=== PATIENT | male | born 1940 | race Caucasian/White ===

== ENCOUNTER → 2023-11-05 10:55 | Outpatient (REF) | payer MEDICARE, BC, SELFPAY | LOC: PAVMRI 10:55 | PROVIDERS: ATTENDING PHYSICIAN Orthopaedic Surgery; FAMILY PHYSICIAN Family Medicine | DX: S32.000A Wedge compression fracture of unspecified lumbar vertebra, initial encounter for closed fracture (principal) | CPT/HCPCS: 72148 ==

== ENCOUNTER 2023-11-07 06:48 | Emergency (ER) | payer MEDICARE, BC, SELFPAY ==
[2023-11-07 06:48] VITALS: BMI 25.0
[2023-11-07 07:07] VITALS: BP 101/63
--- NOTE | 2023-11-07 07:46 | ED.GENMED ---
History of Present Illness
General
Chief Complaint: Bowel Problem
Source: patient
Exam Limitations: none
Time Seen by Provider: 11/07/23 07:34
Travel History
Have you had any contact with someone who has COVID-19?: No
Do you have any symptoms of coronavirus? Fever > 100 degrees, chills, cough, shortness of breath, sore throat, loss of taste or smell, muscle aches, or headache?: No
History of Present Illness
History of Present Illness:
83-year-old male presents with at least 5 or 6 days worth of no bowel movement. He starting at lower abdominal pain. Dates he is belching but no vomiting. He has tried Dulcolax. He tried magnesium citrate without relief. Prior to this he was
having loose stool. He also is having back pain has been taking Vicodin. The constipation started before started taking the Vicodin. No prior abdominal surgical history. He denies any urinary symptoms. No other complaints time
Past History
Past History
ED Past Medical History: CAD, Hypercholesterolemia, [place] and Other (GI bleeding)
ED Past Surgical History: Cardiac (Stents X7)
Social History
Tobacco: Non-smoker
Alcohol: Occasional
Drug: None
Personal:
Living: with family
Employment: Employed ([employer] manager)
Phy Exam
Physical Exam
Physical Exam:
General: Well-appearing male no acute respiratory distress
HEENT: Normocephalic atraumatic
Heart: Regular rate and rhythm no murmurs
Lungs: Clear no wheeze or Rales
Abdomen: Soft tender to the lower abdomen bilaterally mildly distended no guarding or rebound normal bowel sounds
Rectal exam: No hemorrhoids. No stool in the rectum.
Extremities: No cyanosis
Course
Orders/Labs/Results
Orders:
Orders
11/07/23 07:46
CT Abd/pelvis W Iv Cont Urgent
Comment:
Reason For Exam: abdominal pain, constipation
11/07/23 08:25
Complete Blood Count/With Diff Urgent
Comprehensive Metabolic Panel Urgent
Abnormal Lab Results
11/07/23
08:25
RBC 3.90 L 10^6/uL
(4.70-6.10)
Hgb 12.8 L g/dL
(13.0-18.0)
Hct 37.2 L %
(39.0-52.0)
MCV 95.4 H fL
(80.0-94.0)
MCH 32.8 H pg
(27.0-31.0)
Absolute Monos (auto) 0.7 H 10^3/uL
(0.1-0.6)
Monocytes % 11.0 H %
(1.7-9.3)
BUN 24 H mg/dl
(9-20)
Glucose 101 H mg/dl
(70-99)
AST 15 L U/L
(17-59)
11/07/23 08:25
11/07/23 08:25
Vital Signs
Initial and Last Documented VS:
Initial Vital Signs
Temp Pulse Resp BP Pulse Ox
98.2 F 71 16 101/63 98
11/07/23 07:07 11/07/23 07:07 11/07/23 07:07 11/07/23 07:07 11/07/23 07:07
Last Documented Vital Signs
Temp Pulse Resp BP Pulse Ox
98.2 F 71 16 101/63 98
11/07/23 07:07 11/07/23 07:07 11/07/23 07:07 11/07/23 07:07 11/07/23 07:07
MDM/Problems Addressed
Differential Diagnosis Includes:
Abdominal pain with constipation. Question possible obstruction versus impaction. Will check labs and CT. There is nothing to manually disimpact.
*Critical Care Note
Total Time (30-74mins, 75-104mins- exclusive of procedures): Not Applicable
Update Note
Update Note:
CT negative for acute infectious process or obstruction. There is a large amount of stool throughout the colon. Stool is too high for an enema to be effective. Recommended MiraLAX twice a day. Advise limiting or stopping the use of narcotics for
his back pain as this may be adding into his constipation problem
ED Attending Note
-
Portions of this chart may have been created with voice recognition software.� Occasional wrong word or��sound alike� substitutions may have occurred due to the inherent limitations of voice recognition software.
Discharge Plan
Departure
Patient Disposition: Home (Routine Discharge)
Date of Disposition: 11/07/23
Time of Disposition: 11:04
Patient with high blood pressure during this ER visit?: No
Discharge Problem:
Constipation
Instructions: Constipation, Adult (DC)
Prescriptions:
No Action
clonazepam 0.5 MG tablet
0.5 mg PO HS
aspirin 81 MG tablet,delayed release (DR/EC)
81 mg PO QPM
rosuvastatin 5 MG tablet
5 mg PO QPM
nitroglycerin 0.4 MG tablet, sublingual
0.4 mg sublingual [id number] PRN (Reason: chest pain) Qty: 25 3RF
metoprolol succinate [Toprol XL] 50 MG tablet extended release 24 hr
25 mg PO QPM
tamsulosin 0.4 MG capsule
0.4 mg PO QPM
lisinopril-hydrochlorothiazide 1 EACH tablet
1 tab PO DAILY
Canibus Oil
0.5 applic PO BID PRN (Reason: PAIN)
naproxen sodium [Aleve] 220 MG tablet
220 mg PO DAILY
GenTeal Mild 0.2 % Drops
1 drp OPHTHALMIC (EYE) BID PRN (Reason: DRY EYES)
lisinopril-hydrochlorothiazide 20-25 mg tablet
1 tab PO DAILY Qty: 30 0RF
Referrals:
Larry Miguel MD [Family Provider] -
Activity Restrictions/Additional Instructions:
Drink plenty water. Limit or stop the use of narcotic pain medicine. Use MiraLAX twice a day. Return if worse otherwise follow-up with family doctor.
Interventions
Interventions:
*ED COVID-19 Vaccine History Last Done: 11/07/23 07:07
Discharge Date and Time
Print Language: FAROESE
[2023-11-07 08:37] LABS: % Basophils 0.3 % (0-2); % Eosinophils 1.2 % (0-6); % Immature Granulocytes 0.5 % (0-0.5); % Lymphocytes 20.5 % (20.5-51.1); % Neutrophils 66.5 % (42.2-75.2); Absolute Eosinophils 0.1 10^3/uL (0-0.7); Absolute Lymphocytes 1.3 10^3/uL (1.2-3.4); Absolute Monocytes 0.7 10^3/uL (0.1-0.6); Absolute Neutrophils 4.3 10^3/uL (1.4-6.5); Hematocrit 37.2 % (39.0-52.0); Hemoglobin 12.8 g/dL (13.0-18.0); Mean Corp Hgb Conc. 34.4 g/dL (33.0-37.0); Mean Corpuscular Hgb 32.8 pg (27.0-31.0); Mean Corpuscular Volume 95.4 fL (80.0-94.0); Mean Platelet Volume 7.8 fL (7.4-10.4); Nucleated Red Blood Cells % 0 % (-); Platelet Count 241 10^3/uL (130-400); White Blood Cell Count 6.5 10^3/uL (4.8-10.8)
[2023-11-07 08:55] LABS: ALT (SGPT) 12 U/L (0-50); AST (SGOT) 15 U/L (17-59); Albumin 4.1 g/dl (3.5-5.0); Alkaline Phosphatase 81 U/L (38-126); Blood Urea Nitrogen 24 mg/dl (9-20); Calcium 9.4 mg/dl (8.4-10.2); Carbon Dioxide 28 mmol/L (22-30); Chloride 101 mmol/L (98-107); Glucose 101 mg/dl (70-99); Potassium 4.9 mmol/L (3.5-5.1); Sodium 136 mmol/L (135-145); Total Bilirubin 0.8 mg/dl (0.2-1.3); Total Protein 6.6 g/dl (6.3-8.2); eGFR > 60.00
[2023-11-07 11:00] VITALS: BP 150/84
== END 2023-11-07 11:28 | disposition home or self-care (01) ==
LOC: EMR 06:48
PROVIDERS: Physician Assistant; EMERGENCY PHYSICIAN Emergency Medicine; FAMILY PHYSICIAN Family Medicine
DX: K59.00 Constipation, unspecified (principal); M54.9 Dorsalgia, unspecified; I25.10 Atherosclerotic heart disease of native coronary artery without angina pectoris; E78.00 Pure hypercholesterolemia, unspecified; I25.2 Old myocardial infarction; Z95.5 Presence of coronary angioplasty implant and graft
CPT/HCPCS: 99285; 74177; 80053; 85025; Q9967

== ENCOUNTER → 2024-01-13 10:41 | Outpatient (REF) | payer MEDICARE, BC, SELFPAY ==
[2024-01-13 13:17] LABS: PSA, Total - Diagnostic 0.07 ng/ml (0.0-4.0)
== END ==
LOC: REG 10:41
PROVIDERS: ATTENDING PHYSICIAN Family Medicine
DX: C61 Malignant neoplasm of prostate (principal)
CPT/HCPCS: 36415; 84153

== ENCOUNTER → 2024-03-28 11:40 | Outpatient (REF) | payer MEDICARE, BC, SELFPAY | LOC: RAD 11:40 | PROVIDERS: ATTENDING PHYSICIAN Nurse Practitioner Adult Health; FAMILY PHYSICIAN Family Medicine | DX: R91.8 Other nonspecific abnormal finding of lung field (principal) | CPT/HCPCS: 71250 ==

== ENCOUNTER → 2024-04-06 11:08 | Outpatient (REF) | payer MEDICARE, BC, SELFPAY ==
[2024-04-06 12:19] LABS: % Basophils 0.5 % (0-2); % Eosinophils 1.6 % (0-6); % Immature Granulocytes 0.3 % (0-0.5); % Lymphocytes 21.3 % (20.5-51.1); % Monocytes 8.6 % (1.7-9.3); % Neutrophils 67.7 % (42.2-75.2); Absolute Eosinophils 0.1 10^3/uL (0-0.7); Absolute Lymphocytes 1.3 10^3/uL (1.2-3.4); Absolute Monocytes 0.5 10^3/uL (0.1-0.6); Absolute Neutrophils 4.2 10^3/uL (1.4-6.5); Hematocrit 39.1 % (39.0-52.0); Hemoglobin 13.7 g/dL (13.0-18.0); Mean Corpuscular Hgb 34.1 pg (27.0-31.0); Mean Corpuscular Volume 97.3 fL (80.0-94.0); Mean Platelet Volume 8.9 fL (7.4-10.4); Nucleated Red Blood Cells % 0 % (-); Platelet Count 179 10^3/uL (130-400); Red Blood Cell Count 4.02 10^6/uL (4.70-6.10); Red Cell Dist. Width 12.4 % (11.5-14.5); White Blood Cell Count 6.2 10^3/uL (4.8-10.8)
[2024-04-06 12:58] LABS: ALT (SGPT) 11 U/L (0-50); AST (SGOT) 17 U/L (17-59); Alkaline Phosphatase 64 U/L (38-126); Blood Urea Nitrogen 17 mg/dl (9-20); Calcium 9.3 mg/dl (8.4-10.2); Carbon Dioxide 22 mmol/L (22-30); Chloride 104 mmol/L (98-107); Glucose 91 mg/dl (70-99); HDL Cholesterol 55 mg/dl; LDL Cholesterol, Calculated 51 mg/dl; Potassium 4.4 mmol/L (3.5-5.1); Sodium 140 mmol/L (135-145); Total Bilirubin 0.9 mg/dl (0.2-1.3); Total Cholesterol 115 mg/dl (50-199); Total Protein 6.3 g/dl (6.3-8.2); Triglyceride 48 mg/dl (10-149); Urine Albumin Negative (Neg - Trace); Urine Bilirubin Negative (Negative); Urine Character Clear (Clear); Urine Color Yellow; Urine Glucose Negative (Negative); Urine Ketone Negative (Negative); Urine Leukocyte Negative (Negative); Urine Nitrite Negative (Negative); Urine Occult Blood Negative (Negative); Urine Urobilinogen Negative (Neg - 1+); Very Low Density Lipoprotein 9 mg/dl (0-30); eGFR > 60.00
== END ==
LOC: REG 11:08
PROVIDERS: ATTENDING PHYSICIAN Family Medicine
DX: I25.10 Atherosclerotic heart disease of native coronary artery without angina pectoris (principal); E78.2 Mixed hyperlipidemia; C61 Malignant neoplasm of prostate
CPT/HCPCS: 36415; 80053; 80061; 81003; 85025

== ENCOUNTER → 2024-05-23 07:50 | Outpatient (REF) | payer MEDICARE, BC, SELFPAY | LOC: REG 07:50 | PROVIDERS: ATTENDING PHYSICIAN Family Medicine Geriatric Medicine; FAMILY PHYSICIAN Family Medicine | DX: C61 Malignant neoplasm of prostate (principal) | CPT/HCPCS: 36415; 84153 ==

== ENCOUNTER → 2024-12-01 07:36 | Outpatient (REF) | payer MEDICARE, BC, SELFPAY ==
[2024-12-01 17:17] LABS: PSA, Total - Diagnostic 0.07 ng/ml (0.0-4.0)
== END ==
LOC: REG 07:36
PROVIDERS: ATTENDING PHYSICIAN Family Medicine Geriatric Medicine; FAMILY PHYSICIAN Family Medicine
DX: C61 Malignant neoplasm of prostate (principal)
CPT/HCPCS: 36415; 84153

== ENCOUNTER → 2025-01-26 07:32 | Outpatient (REF) | payer MEDICARE, BC, SELFPAY | LOC: REG 07:32 | PROVIDERS: ATTENDING PHYSICIAN Physician Assistant | DX: S70.261A Insect bite (nonvenomous), right hip, initial encounter (principal) | CPT/HCPCS: 86618 ==

== ENCOUNTER → 2025-03-07 13:25 | Outpatient (REF) | payer MEDICARE, BC, SELFPAY | LOC: EMG 13:25 | PROVIDERS: ATTENDING PHYSICIAN Family Medicine | DX: R20.0 Anesthesia of skin (principal); R20.2 Paresthesia of skin; M54.2 Cervicalgia; M54.12 Radiculopathy, cervical region | CPT/HCPCS: 95886; 95911 ==

== ENCOUNTER → 2025-03-16 14:22 | Outpatient (REF) | payer MEDICARE, BC, SELFPAY | LOC: PAVMRI 14:22 | PROVIDERS: ATTENDING PHYSICIAN Physician Assistant; FAMILY PHYSICIAN Family Medicine | DX: M54.16 Radiculopathy, lumbar region (principal) | CPT/HCPCS: 72148 ==

== ENCOUNTER → 2025-03-30 09:47 | Outpatient (REF) | payer MEDICARE, BC, SELFPAY | LOC: RCS 09:47 | PROVIDERS: ATTENDING PHYSICIAN Internal Medicine Cardiovascular Disease; FAMILY PHYSICIAN Family Medicine | DX: I10 Essential (primary) hypertension (principal); I25.10 Atherosclerotic heart disease of native coronary artery without angina pectoris | CPT/HCPCS: 93306 ==

== ENCOUNTER → 2025-04-04 14:14 | Outpatient (REF) | payer MEDICARE, BC, SELFPAY | LOC: HWRAD 14:14 | PROVIDERS: ATTENDING PHYSICIAN Nurse Practitioner Adult Health; FAMILY PHYSICIAN Family Medicine | DX: R91.8 Other nonspecific abnormal finding of lung field (principal) | CPT/HCPCS: 71250 ==

== ENCOUNTER → 2025-04-04 17:55 | Outpatient (REF) | payer MEDICARE, BC, SELFPAY | LOC: PAVMRI 17:55 | PROVIDERS: ATTENDING PHYSICIAN Family Medicine; FAMILY PHYSICIAN Family Medicine | DX: M54.12 Radiculopathy, cervical region (principal); R20.0 Anesthesia of skin; R20.2 Paresthesia of skin | CPT/HCPCS: 72141 ==

== ENCOUNTER → 2025-04-17 12:41 | Outpatient (REF) | payer MEDICARE, BC, SELFPAY ==
[2025-04-17 14:05] LABS: C-Reactive Protein < 5.00 mg/L (0.0-10.00)
== END ==
LOC: REG 12:41
PROVIDERS: ATTENDING PHYSICIAN Ophthalmology; FAMILY PHYSICIAN Family Medicine
DX: H53.10 Unspecified subjective visual disturbances (principal)
CPT/HCPCS: 36415; 85652; 86140

== ENCOUNTER → 2025-05-18 10:58 | Outpatient (REF) | payer MEDICARE, BC, SELFPAY ==
[2025-05-18 12:20] LABS: Hematocrit 38.4 % (39.0-52.0); Hemoglobin 13.2 g/dL (13.0-18.0); Mean Corp Hgb Conc. 34.4 g/dL (33.0-37.0); Mean Corpuscular Volume 95.0 fL (80.0-94.0); Nucleated Red Blood Cells % 0 % (-); Platelet Count 236 10^3/uL (130-400); Red Cell Dist. Width 13.2 % (11.5-14.5)
[2025-05-18 14:03] LABS: ALT (SGPT) 11 U/L (0-50); AST (SGOT) 15 U/L (17-59); Albumin 4.0 g/dl (3.5-5.0); Alkaline Phosphatase 51 U/L (38-126); Blood Urea Nitrogen 14 mg/dl (9-20); Calcium 9.3 mg/dl (8.4-10.2); Carbon Dioxide 26 mmol/L (22-30); Chloride 106 mmol/L (98-107); Glucose 102 mg/dl (70-99); HDL Cholesterol 44 mg/dl; LDL Cholesterol, Calculated 64 mg/dl; Potassium 5.0 mmol/L (3.5-5.1); Sodium 138 mmol/L (135-145); Total Protein 6.3 g/dl (6.3-8.2); Very Low Density Lipoprotein 14 mg/dl (0-30); eGFR 59.63
== END ==
LOC: REG 10:58
PROVIDERS: ATTENDING PHYSICIAN Family Medicine
DX: I10 Essential (primary) hypertension (principal); I25.10 Atherosclerotic heart disease of native coronary artery without angina pectoris; E78.2 Mixed hyperlipidemia
CPT/HCPCS: 36415; 80053; 80061; 85025

== ENCOUNTER → 2025-06-16 09:34 | Outpatient (REF) | payer MEDICARE, BC, SELFPAY | LOC: MRI 3T 09:34 | PROVIDERS: ATTENDING PHYSICIAN Physician Assistant; FAMILY PHYSICIAN Family Medicine | DX: M54.16 Radiculopathy, lumbar region (principal); M48.061 Spinal stenosis, lumbar region without neurogenic claudication | CPT/HCPCS: 72148 ==